=== PATIENT | male | born 1965 | race Two or more races ===

== ENCOUNTER 2025-07-05 13:46 | Inpatient (IN) | payer OTHER ==
[~2025-07-05] VITALS: Ht 165.1 cm; Wt 58.5 kg
--- NOTE | 2025-07-05 14:00 | NUR ---
SHOE CLERK ADMITTING NOTE PATIENT RECEIVED VIA [facility] ACCOMPANIED BY THREE EMT IN STABLE CONDITION. ALERT AND ORIENTED x4, GERMAN SPEAKING. BREATHING IS EVEN AND UNLABORED, 99% AT ROOM AIR. LUNG SOUNDS CLEAR THROUGHOUT. ABDOMEN SOFT AND NON TENDER. CONTINENT OF BLADDER AND BOWEL. AMBULATORY WITHOUT DIFFICULTY. SKIN INTACT, LEFT AC PIV 20G. DENIES PAIN AT TIME OF ADMISSION. COOPERATIVE AND TALKATIVE. FAMILY AT BEDSIDE INCLUDING . SAFETY MEASURES IN PLACE, CARE ONGOING.
[2025-07-05] MEDS ORDERED: METF-440 PO (14:12)
--- NOTE | 2025-07-05 14:12 | NUR ---
MED BLAYNE NOTES MAURYIE Addendum: 07/05/25 at 1414 by IRA JIMENEZ LVN NOTE SAVED PREMATURELY Patient stated that he only takes metformin 500mg twice a day. Ruben rosa) at bedside to translate.
[2025-07-05 16:00] VITALS: BP 109/61; TEMP 97.6; O2SAT 99
[2025-07-05] MEDS ORDERED: MAG HYDROX/AL HYDROX/SIMETH 30 ML UDC PO PRN (17:30)
[2025-07-05] MEDS ORDERED: ZOLPIDEM TARTRATE 5 MG TABLET PO PRN (17:30)
[2025-07-05] MEDS ORDERED: Z GUARD REMEDY 4 OZ OINT TP PRN (17:30)
[2025-07-05] MEDS ORDERED: MAGNESIUM HYDROXIDE 30 ML UDC PO PRN (17:30)
[2025-07-05] MEDS ORDERED: DEXTROSE 50%-WATER 50 ML DISP.SYRIN IV PRN (17:30)
[2025-07-05] MEDS ORDERED: ONDANSETRON HCL/PF 4 MG/2 ML VIAL IVP PRN (17:30)
[2025-07-05] MEDS ORDERED: HYDROCODONE/APAP 10/325MG TABLET PO PRN (17:30)
[2025-07-05] MEDS: IV NS 0.9% 1,000 ML IV PRN (17:38)
[2025-07-05] MEDS: BLOOD SUGAR DIAGNOSTIC 1 EACH STRIP IN SCH (17:51)
--- NOTE | 2025-07-05 18:52 | NUR ---
AIR DEFENSE SPECIALIST CLOSING NOTE PATIENT A+O x4. BREATHING EVEN AND UNLABORED, 98% ON ROOM AIR. SINUS RHYTHM IN 80s. DENIES HAVING PAIN AT THIS TIME. NPO, TOLERATING WELL. IV SITE INTACT, NS @75ML/HR, NO S/S INFILTRATE NOTED. ENDORSED FOR DANIEL.
[2025-07-05 19:02] LABS: CALCIUM, SERUM 8.2 mg/dL (8.5-10.1); CREATININE 0.9 mg/dL (0.6-1.3); SODIUM SERUM 140.0 mmol/L (136-145); UREA NITROGEN, BLOOD 13.0 mg/dL (7-18)
--- NOTE | 2025-07-05 19:45 | NUR ---
REIMBURSEMENT REPRESENTATIVE OPENING NOTES PATIENT COMFORTABLY IN BED, A/O X3, SLOVENIAN SPEAKING. ON ROOM AIR SATURATING 98%, UNLABORED BREATHING NOTED. TELE MONITORING SHOWING SINUS RHYTHM AT 106 BPM. WITH IV ACCESS AT LEFT AC #20G WITH RUNNING NS @75ML/HR INFUSING WELL. NO C/O PAIN/DISCOMFORT. PATIENT IS AMBULATORY, PREFERS TO USE URINAL. ON NPO STATUS AT THIS TIME. ALL FALL/ SAFETY MEASURES IN PLACE PER UNIT PROTOCOL. BED LOCKED AND IN THE LOWEST POSITION. PLAN OF CARE ONGOING.
[2025-07-05] MEDS: PIPERACILLIN /TAZOBACTAM 3.375 G in IV D5W 50 ML IV SCH (19:49)
[2025-07-05 20:00] VITALS: BP 141/75; TEMP 99; O2SAT 99
[2025-07-05] MEDS ORDERED: PIPERACILLIN /TAZOBACTAM 3.375 G in IV D5W 50 ML IV SCH (21:00)
[2025-07-05] MEDS: INSULIN REGULAR, HUMAN 100 UNIT/ML 3 ML VIAL SQ PRN (22:21)
--- NOTE | 2025-07-05 22:21 | NUR ---
RN NOTE BG 160MG/DL, 2 UNITS INSULIN REGULAR REFUSED BY PATIENT. CURRENTLY ON NPO STATUS. WILL CONTINUE TO MONITOR THE PATIENT.
[2025-07-06] VITALS: BP 127/75; TEMP 99.1; O2SAT 99
[2025-07-06 04:00] VITALS: BP 112/70; TEMP 98.6; O2SAT 95
--- NOTE | 2025-07-06 06:49 | NUR ---
LASER ENGRAVER CLOSING NOTES PATIENT REMAINS STABLE, VS WNL. AFEBRILE. TOLERATING ROOM AIR SATURATING 98%, NO SOB NOTED. TELE MONITORING SHOWING SINUS RHYTHM AT 80 BPM. NO C/O PAIN/DISCOMFORT. INTACT IV ACCESS AT LEFT AC #20G WITH RUNNING NS @75ML/HR INFUSING WELL. ON NPO STATUS MAINTAINED PER MD ORDER. ALL DUE MEDS GIVEN PRESCRIBED. CLEANED AND ASSISTED WITH HIS NEEDS. ALL FALL/ SAFETY MEASURES MAINTAINED PER UNIT PROTOCOL. BED LOCKED AND IN THE LOWEST POSITION. WILL ENDORSE TO INCOMING SHIFT RN
[2025-07-06 07:16] LABS: RED BLOOD CELL COUNT(AUTO) 4.20 MIL/uL (4.5-6.0); RED CELL DISTRIBUTION WIDTH 12.7 % (11.5-15.0); WHITE BLOOD COUNT (AUTO) 4.6 K/uL (4.3-11.0)
[2025-07-06 07:35] LABS: PLATELET COUNT (AUTO) 87 K/uL (150-450)
[2025-07-06 07:36] LABS: ASPARTATE AMINOTRANSFERASE 32.0 U/L (15-37); CALCIUM, SERUM 8.0 mg/dL (8.5-10.1); CREATININE 1.0 mg/dL (0.6-1.3); PHOSPHORUS 2.8 mg/dL (2.5-4.9); SODIUM SERUM 142.0 mmol/L (136-145); TOTAL PROTEIN, SERUM 6.3 g/dL (6.4-8.2); UREA NITROGEN, BLOOD 15.0 mg/dL (7-18)
--- NOTE | 2025-07-06 07:52 | NUR ---
RN OPENING NOTE PATIENT RECEIVED IN BED. AWAKE A/O X4. ABLE TO MAKE NEEDS KNOWN. PATIENT ON MONITOR CURRENTLY SINUS RHYTHM 95. PATIENT HAS A LEFT A.C 18#G. ON SALINE FLUSH. PATIENT IS NPO. SAFETY MEASURES IN PLACE, BED ALARM ON, 2X SIDE RAILS UP. BED IN THE LOWEST POSITION POSITION. CALL LIGHT WITHIN REACH.
[2025-07-06] MEDS: PANTOPRAZOLE 40 MG VIAL IV SCH (09:18)
[2025-07-06 10:47] VITALS: BP 129/77; TEMP 98.5; O2SAT 100
[2025-07-06] MEDS: PIPERACILLIN /TAZOBACTAM 3.375 G in IV D5W 100 ML IV SCH (11:12)
[2025-07-06 13:47] LABS: LYMPHOCYTES % (MANUAL) 11 % (16-48); MONOCYTES % (MANUAL) 4 % (0-11.0); NEUTROPHILS % (MANUAL) 85 (42-76); PLATELET ESTIMATE DECREASED
[2025-07-06 14:04] VITALS: BP 129/77; TEMP 98.5; O2SAT 100
--- NOTE | 2025-07-06 17:00 | NUR ---
RN NOTE - BLOOD SUGAR CHECK PATIENT BLOOD GLUCOSE CHECK WAS NOT TAKEN SINCE PATIENT IS ABSENT FROM [facility] AT THE MOMENT BECAUSE THEY ARE GETTING AN ABD SCAN.
[2025-07-06 18:00] VITALS: BP 129/77; TEMP 98.5; O2SAT 100
--- NOTE | 2025-07-06 19:28 | NUR ---
RN CLOSING NOTE PATIENT RECEIVED IN BED. AWAKE A/O X4. ABLE TO MAKE NEEDS KNOWN. PATIENT HAS A LEFT A.C 18#G. ON SALINE FLUSH. PATIENT IS ON CLEAR LIQUIDS. SAFETY MEASURES IN PLACE, BED ALARM ON, 2X SIDE RAILS UP. BED IN THE LOWEST POSITION POSITION. CALL LIGHT WITHIN REACH. Addendum: 07/06/25 at 1929 by DARIN PARKER RN RN CLOSING NOTE PATIENT IN BED. AWAKE A/O X4. ABLE TO MAKE NEEDS KNOWN. PATIENT HAS A LEFT A.C 18#G. ON SALINE FLUSH. PATIENT IS ON CLEAR LIQUIDS. SAFETY MEASURES IN PLACE, BED ALARM ON, 2X SIDE RAILS UP. BED IN THE LOWEST POSITION POSITION. CALL LIGHT WITHIN REACH.
--- NOTE | 2025-07-06 19:50 | NUR ---
APIARIST OPENING NOTES PATIENT ARRIVED AT THE ROOM FROM [facility]AN VIA WHEEL CHAIR, PT WILL BE WHEELED BACK TO [facility] ROOM AFER 1 HR FOR THE PROCEDURE. CURRENTLY ON ROOM AIR SATURATING 98%, UNLABORED BREATHING NOTED. NO C/O PAIN/DISCOMFORT AT THIS TIME. WITH IV ACCESS AT LEFT AC #20G WITH RUNNING NS @75ML/HR INFUSING WELL. PATIENT IS AMBULATORY, PREFERS TO USE URINAL. ON LIQUID DIET AT THIS TIME. ALL FALL/ SAFETY MEASURES IN PLACE PER UNIT PROTOCOL. BED LOCKED AND IN THE LOWEST POSITION. PLAN OF CARE ONGOING.
[2025-07-06 20:00] VITALS: BP 132/68; TEMP 98.1; O2SAT 100
--- NOTE | 2025-07-06 20:00 | NUR ---
RN NOTE - IV ABX PATIENT WAS NOT GIVEN ZOSYN AT SCHEDULED HOUR 1900. PATIENT IS OUT OF DEPARTMENT GETTING A [place] SCAN. NOTIFIED PHARMACY, SAID TO ENDORSE TO NIGHT NURSE WHO CAN GIVE THE DOSE AFTER THE PATIENT RETURNS FROM SCAN.
--- NOTE | 2025-07-06 22:39 | NUR ---
RN NOTE BG 184MG/DL, 3 UNITS INSULIN REGULAR GIVEN PER SLIDING SCALE.
[2025-07-07] VITALS: BP 122/71; TEMP 98; O2SAT 100
[2025-07-07] MEDS: ACETAMINOPHEN 325 MG TABLET PO PRN (03:29)
--- NOTE | 2025-07-07 03:30 | NUR ---
RN NOTE TYLENOL 650MG GIVEN PER PATIENT REQUEST, FOR ABDOMINAL PAIN. WILL CONTINUE TO MONITOR THE PATIENT.
[2025-07-07 04:00] VITALS: BP 130/70; TEMP 98; O2SAT 100
[2025-07-07 06:06] LABS: PLATELET COUNT (AUTO) 92 K/uL (150-450); RED BLOOD CELL COUNT(AUTO) 4.27 MIL/uL (4.5-6.0); RED CELL DISTRIBUTION WIDTH 12.6 % (11.5-15.0); WHITE BLOOD COUNT (AUTO) 5.2 K/uL (4.3-11.0)
[2025-07-07 06:19] LABS: ASPARTATE AMINOTRANSFERASE 29.0 U/L (15-37); CALCIUM, SERUM 8.4 mg/dL (8.5-10.1); CREATININE 0.9 mg/dL (0.6-1.3); SODIUM SERUM 138.0 mmol/L (136-145); TOTAL PROTEIN, SERUM 6.7 g/dL (6.4-8.2); UREA NITROGEN, BLOOD 10.0 mg/dL (7-18)
--- NOTE | 2025-07-07 07:03 | NUR ---
SHANK BURNISHER OPENING NOTES PT AWAKE IN BED, TOLERATING ROOM AIR SATURATING 98%, NO SOB NOTED. TELE MONITORING SHOWING SINUS RHYTHM. NO C/O PAIN/DISCOMFORT. INTACT IV ACCESS AT LEFT AC #20G WITH RUNNING NS @75ML/HR INFUSING WELL. ON CLEAR LIQUID DIET AT THIS MAINTAINED PER MD ORDER. ALL DUE MEDS GIVEN PRESCRIBED. ALL FALL/ SAFETY MEASURES MAINTAINED PER UNIT PROTOCOL. BED LOCKED AND IN THE LOWEST POSITION. WILL CONTINUE WITH POC.
--- NOTE | 2025-07-07 07:38 | NUR ---
DIVING SUPERVISOR CLOSING NOTES PATIENT REMAINS STABLE, VS WNL. AFEBRILE. TOLERATING ROOM AIR SATURATING 98%, NO SOB NOTED. TELE MONITORING SHOWING SINUS RHYTHM AT 80 BPM. NO C/O PAIN/DISCOMFORT. INTACT IV ACCESS AT LEFT AC #20G WITH RUNNING NS @75ML/HR INFUSING WELL. ON CLEAR LIQUID DIET AT THIS MAINTAINED PER MD ORDER. ALL DUE MEDS GIVEN PRESCRIBED. CLEANED AND ASSISTED WITH HIS NEEDS. ALL FALL/ SAFETY MEASURES MAINTAINED PER UNIT PROTOCOL. BED LOCKED AND IN THE LOWEST POSITION. WILL ENDORSE TO INCOMING SHIFT RN
[2025-07-07 08:00] VITALS: BP 115/78; TEMP 98.4; O2SAT 100
[2025-07-07] MEDS: PANTOPRAZOLE 40 MG TABLET.DR PO SCH (08:30)
[2025-07-07] MEDS: POTASSIUM CL. PREMIX PERIPHER. 50 ML IV SCH (10:10)
[2025-07-07 12:00] VITALS: BP 114/72; TEMP 98.2; O2SAT 100
[2025-07-07 12:28] LABS: EOSINOPHILS % (MANUAL) 1 % (0-4); LYMPHOCYTES % (MANUAL) 12 % (16-48); MONOCYTES % (MANUAL) 8 % (0-11.0); NEUTROPHILS % (MANUAL) 79 (42-76)
[2025-07-07 12:29] LABS: PLATELET ESTIMATE DECREASED
[2025-07-07] MEDS ORDERED: MORPHINE SULFATE INJ 4 MG/ML DISP.SYRIN IV PRN (14:00)
[2025-07-07 16:00] VITALS: BP 116/80; TEMP 99.1; O2SAT 100
--- NOTE | 2025-07-07 19:00 | NUR ---
RN PT PAIN IN ABDOMEN 12/20. TYLENOL ADMINISTERED
--- NOTE | 2025-07-07 19:26 | NUR ---
COMPRESSOR STATION OPERATOR CLOSING NOTES PT AWAKE IN BED, TOLERATING ROOM AIR SATURATING 100%, NO SOB NOTED. TELE MONITORING SHOWING SINUS RHYTHM. NO PAIN OR DISCOMFORT. INTACT IV ACCESS AT LEFT AC #20G WITH RUNNING NS @75ML/HR INFUSING WELL. ON CLEAR LIQUID DIET AT THIS TIME, NPO MIDNIGHT FOR MRI. ALL DUE MEDS GIVEN, ALL NEEDS ATTENDED TO. ALL FALL/ SAFETY MEASURES MAINTAINED PER UNIT PROTOCOL. BED LOCKED AND IN THE LOWEST POSITION. ENDORSED TO EPIC WILLOW ANALYST NURSE.
--- NOTE | 2025-07-07 19:30 | NUR ---
SPRINKLER INSPECTOR OPENING NOTES RECEIVED PATIENT IN BED AWAKE. A/OX4, DANISH SPEAKING. ON ROOM AIR, TOLERATING WELL WITH O2 SATURATION OF 98%, NO S/S SOB, DISTRESS, DISCOMFORT NOTED. EXTERNAL TRACK LINER OPERATOR SHOWING SR WITH HR OF 70. IV ACCESS LAC #20G WITH NS RUNNING @75ML/HR INFUSING. SITE PATENT, INTACT, AND FLUSHING WELL. ON CLEAR LIQUID DIET AT THIS TIME, NPO MIDNIGHT 07/08/25 FOR MRI. FALL AND SAFETY MEASURES IN PLACE. BED LOCKED AND IN THE LOWEST POSITION. SIDE RAILS UP X2. WILL CONTINUE POC.
[2025-07-07 19:36] LABS: CALCIUM, SERUM 8.4 mg/dL (8.5-10.1); CREATININE 0.9 mg/dL (0.6-1.3); SODIUM SERUM 137.0 mmol/L (136-145); UREA NITROGEN, BLOOD 8.0 mg/dL (7-18)
[2025-07-07 20:00] VITALS: BP 127/74; TEMP 98.9; O2SAT 98
--- NOTE | 2025-07-07 23:02 | NUR ---
RECEIVED A PHONE CALL DR. PETERS. PT IS GOING HAVE LAPAROSCOPIC POSSIBLE OPEN CHOLECYSTECTOMY TOMORROW. NPO EXCEPT MEDS AFTER MIDNIGHT. START D5 1/2 NS +20 MEQ K+ AT 100CC/HR PAST MIDNIGHT. ON SUNDAY MORNING, KEEP LABEL PRINTING MACHINIST DEVICE AT BEDSIDE. ALSO MRCP W/O CONTRAST HAS TO BE DONE EARLY POSSIBLE.ALL ORDERS NOTED AND CARRIED OUT.
[2025-07-08] VITALS: BP 113/77; TEMP 97.9; O2SAT 98
[2025-07-08] MEDS ORDERED: IV PREMIX D5 1/2NS + KCL 1,000 ML IV ONE (01:05)
[2025-07-08] MEDS: Potassium Chloride 20 MEQ in IV D5/0.45 NACL 1,000 ML IV PRN (01:41)
[2025-07-08 04:00] VITALS: BP 124/71; TEMP 97.8; O2SAT 99
[2025-07-08 06:11] LABS: PLATELET COUNT (AUTO) 107 K/uL (150-450); RED BLOOD CELL COUNT(AUTO) 4.31 MIL/uL (4.5-6.0); RED CELL DISTRIBUTION WIDTH 12.7 % (11.5-15.0); WHITE BLOOD COUNT (AUTO) 4.7 K/uL (4.3-11.0)
[2025-07-08 06:28] LABS: CALCIUM, SERUM 8.6 mg/dL (8.5-10.1); CREATININE 0.7 mg/dL (0.6-1.3); PHOSPHORUS 3.5 mg/dL (2.5-4.9); SODIUM SERUM 139.0 mmol/L (136-145); UREA NITROGEN, BLOOD 9.0 mg/dL (7-18)
[2025-07-08 06:40] LABS: INR 1.04 (0.91-1.10)
--- NOTE | 2025-07-08 07:10 | NUR ---
TOP SPOTTER CLOSING NOTES PATIENT IN BED AWAKE. A/OX4, THAI SPEAKING. ON ROOM AIR, TOLERATING WELL WITH O2 SATURATION OF 98%, NO S/S SOB, DISTRESS, DISCOMFORT NOTED. EXTERNAL OVERHEAD LINE WORKER SHOWING SR WITH HR OF 70. IV ACCESS LAC #20G WITH NS RUNNING @75ML/HR INFUSING. SITE PATENT, INTACT, AND FLUSHING WELL. ON CLEAR LIQUID DIET AT THIS TIME, NPO MIDNIGHT 07/08/25 FOR MRI AND SURGERY. DUE MEDS GIVEN. ALL NEEDS ANTICIPATED AND ATTENDED. FALL AND SAFETY MEASURES IN PLACE. BED LOCKED AND IN THE LOWEST POSITION. SIDE RAILS UP X2. WILL ENDORSE MORNING SHIFT NURSE FOR DANIEL.
--- NOTE | 2025-07-08 07:30 | NUR ---
FISHING VESSEL OPERATOR OPENING NOTE RECEIVED PATIENT AWAKE IN BED. A/O X4, WOLOF SPEAKER. BREATHING EVEN AND NON-LABORED ON ROOM AIR. NO C/O ABDOMINAL PAIN BUT BREATHING IN IS AN AGGRAVATING FACTOR. ON TELE MONITOR READING SINUS RHYTHM AT 82 BPM. HAS THE FOLLOWING IV ACCESS: RIGHT HAND #22G WITH IVPB ZOSYN RUNNING AT 25 ML/HR; LEFT ANTECUBITAL #18G WITH KCL 20MEQ IN D5 1/2NS RUNNING AT 100 ML/HR. NO S/S OF INFILTRATION NOTED. USES THE URINAL. SAFETY PRECAUTIONS IN PLACE: BED LOCKED AND IN LOW POSITION, SIDE RAILS UP X2, CALL LIGHT AND TABLE WITHIN REACH. WILL CONTINUE PLAN OF CARE.
[2025-07-08 08:00] VITALS: BP 123/81; TEMP 98.4; O2SAT 99
[2025-07-08] MEDS: Potassium Chloride 20 MEQ in IV D5/0.45 NACL 1,000 ML IV SCH (08:38)
[2025-07-08 09:44] LABS: ASPARTATE AMINOTRANSFERASE 22.0 U/L (15-37); TOTAL PROTEIN, SERUM 6.5 g/dL (6.4-8.2)
[2025-07-08] MEDS ORDERED: MIDAZOLAM HCL 2 MG/2ML VIAL ONE (10:29)
[2025-07-08] MEDS ORDERED: FENTANYL PF 100MCG/2ML AMPUL ONE (10:29)
[2025-07-08] MEDS ORDERED: SUCCINYLCHOLINE CHLORIDE 20 MG/ML VIAL ONE (10:29)
[2025-07-08] MEDS ORDERED: HYDROMORPHONE 1 MG/1 ML DISP.SYRIN IV PRN (10:30)
--- NOTE | 2025-07-08 10:56 | NUR ---
PATIENT TRANSFERRED TO OR
--- NOTE | 2025-07-08 11:09 | NUR ---
SCHEDULED ZOSYN GIVEN TO OR NURSE FOR ADMINISTRATION
[2025-07-08] MEDS ORDERED: BUPIVACAINE 0.5 % PF 150 MG/30 ML VIAL ONE (11:29)
[2025-07-08] MEDS ORDERED: ANESTHESIA TRAY IN PYXIS 1 EA TRAY MC ONE ×2 (11:29→14:24)
[2025-07-08] MEDS ORDERED: LIDOCAINE 1%-EPI 1:100,000 20 ML VIAL ONE (11:29)
[2025-07-08] MEDS ORDERED: CELLULOSE,OXIDIZED 1 EA PACK MC ONE (12:56)
[2025-07-08 16:00] VITALS: BP 145/81; TEMP 98.2; O2SAT 100
[2025-07-08] MEDS ORDERED: oxyCODONE IR immediate release 5 MG TABLET PO PRN (16:00)
[2025-07-08] MEDS: ACETAMINOPHEN 325 MG TABLET PO SCH (17:01)
[2025-07-08] MEDS: HYDROMORPHONE 1 MG/1 ML DISP.SYRIN IV PRN (17:02)
--- NOTE | 2025-07-08 18:15 | NUR ---
MRCP DONE, PATIENT CURRENTLY WITH NUCLEAR MED FOR HIDA SCAN
--- NOTE | 2025-07-08 18:28 | NUR ---
20MEQ KCL IN D5 1/2NS BAG STILL WITH 800 ML, NON-ADMIN SCHEDULED IV
--- NOTE | 2025-07-08 19:15 | NUR ---
SHOE PULLER CLOSING NOTE PATIENT NOT BACK FROM [facility] SCAN. PATIENT IS ABLE TO MAKE HIS NEEDS KNOWN. SATURATING WELL ON ROOM AIR. PAIN MANAGEMENT PER MD ORDER. AFEBRILE. TELE MONITOR SHOWS SINUS RHYTHM RANGING FROM 70-80 BPM. LEFT ANTECUBITAL PIV INTACT, PATENT AND FLUSHING. NO BM. CLOUDY VIOLETTA URINE OUTPUT NOTED. S/P LAPAROSCOPIC CHOLECYSTECTOMY WITH PERITONEAL ABSCESS WITH DR. PETERS. HAS 4 ABDOMINAL SURGICAL INCISIONS NOTED, DRY AND NO S/S OF INFECTION. HAS RIGHT UPPER QUADRANT GRETCHEN DRAIN WITH SEROSANGUINEOUS FLUID. ALL DUE MEDS GIVEN AND NEEDS ATTENDED. SAFETY MEASURES MAINTAINED. ENDORSED TO NIGHT RN FOR DANIEL.
--- NOTE | 2025-07-08 19:30 | NUR ---
TRACK PATROL OPENING NOTE RECEIVED PATIENT IN BED RETURNING FROM [facility], WITH FAMILY AT BEDSIDE. A/OX4, SAMOAN SPEAKER. PATIENT RETURNED IN STABLE CONDITION WITH VITAL SIGNS TAKEN AND WNL. PATIENT IS ABLE TO MAKE HIS NEEDS KNOWN. ON ROOM AIR, TOLERATING WELL WITH O2 SAT OF 99%. CARDIAC EXTERNAL MONITOR SHOWS SINUS RHYTHMIN THE 60S. LAC #18G AND R-HAND #22G RUNNING POTASSIUM 20MEQ + D5/0.45NS AT 100CCS/HR. SITE PATENT, INTACT, AND FLUSHING WELL. BRP AND CLEAR YELLOW URINE NOTED IN URINAL. RECEIVED S/P LAPAROSCOPIC CHOLECYSTECTOMY WITH PERITONEAL ABSCESS WITH DR. PETERS. HAS 4 ABDOMINAL SURGICAL INCISIONS NOTED. NO SIGNS OF INFECTION NOTED AT SITE. RIGHT UPPER QUADRANT GRETCHEN DRAIN WITH SEROSANGUINEOUS FLUID NOTED BEFORE DRAINAGE. SAFETY MEASURES MAINTAINED. BED IN LOWEST AND LOCKED POSITION. CALL LIGHT WITHIN REACH. SIDE RAILS UP X2. WILL CONTINUE TO MONITOR.
[2025-07-08 20:00] VITALS: BP 154/77; TEMP 97.5; O2SAT 95
--- NOTE | 2025-07-08 20:05 | NUR ---
RN [place] [facility] [phone] [place], ADVISED HIM THAT WE WOULD LIKE TO INITIATE TRANSFER FOR [facility]. HE IS GOING TO FAX 3 PAGES FORM TO BE COMPLETED TO BE SENT BACK TO THEM WITH PATIENT'S FACE SHEET AND MD CONTACT INFO. PROVIDED OUR FAX NUMBER. DR. HARVEY ON THE FLOOR, WITH CONTACT #[phone].
[2025-07-08 22:40] LABS: PLATELET COUNT (AUTO) 132 K/uL (150-450); RED BLOOD CELL COUNT(AUTO) 4.45 MIL/uL (4.5-6.0); RED CELL DISTRIBUTION WIDTH 12.7 % (11.5-15.0); WHITE BLOOD COUNT (AUTO) 8.5 K/uL (4.3-11.0)
[2025-07-08] MEDS: oxyCODONE IR immediate release 5 MG TABLET PO PRN (22:56)
[2025-07-08 23:01] LABS: ASPARTATE AMINOTRANSFERASE 565.0 U/L (15-37); CALCIUM, SERUM 8.7 mg/dL (8.5-10.1); CREATININE 0.9 mg/dL (0.6-1.3); SODIUM SERUM 136.0 mmol/L (136-145); TOTAL PROTEIN, SERUM 6.7 g/dL (6.4-8.2); UREA NITROGEN, BLOOD 12.0 mg/dL (7-18)
--- NOTE | 2025-07-08 23:23 | NUR ---
RN NOTES FOLLOWED UP WITH [facility] [place] ([facility]) [phone] REGARDING THE FAX ON 4 PAGES FOR TRANSFER FOR [facility]. CONFIRMED THAT FAX WENT THROUGH AND THAT THEY WILL CALL WITHIN 24 HOURS REGARDING TRANSFER.
[2025-07-09] VITALS: BP 158/90; TEMP 97.9; O2SAT 100
[2025-07-09 04:00] VITALS: BP 161/91; TEMP 97.9; O2SAT 100
--- NOTE | 2025-07-09 06:50 | NUR ---
COLLETER CLOSING NOTE PATIENT IN BED RESTING WITH BED AT BEDSIDE, STAYING OVERNIGHT. A/OX4, MALTESE SPEAKER, BUT UNDERSTANDS MINIMAL UPPER SORBIAN. ABLE TO MAKE HIS NEEDS KNOWN. ON ROOM AIR, TOLERATING WELL WITH O2 SAT OF 99%. NO S/S OF SOB/DISCOMFORT/DISTRESS. CARDIAC EXTERNAL MONITOR SHOWS SINUS RHYTHMIN THE 6070S. LAC #18G AND R-HAND #22G RUNNING POTASSIUM 20MEQ + D5/0.45NS AT 100CCS/HR. SITE PATENT, INTACT, AND FLUSHING WELL. BRP AND CLEAR YELLOW URINE NOTED IN URINAL; OUTPUT: 1000ML. RECEIVED S/P LAPAROSCOPIC CHOLECYSTECTOMY WITH PERITONEAL ABSCESS WITH DR. PETERS. HAS 4 ABDOMINAL SURGICAL INCISIONS NOTED. NO SIGNS OF INFECTION NOTED AT SITE. RIGHT UPPER QUADRANT GRETCHEN DRAIN WITH SEROSANGUINEOUS FLUID NOTED WITH DRAINAGE 15ML. DUE MEDS GIVEN. ALL NEEDS ANTICIPATED AND ATTENDED. SAFETY MEASURES MAINTAINED. BED IN LOWEST AND LOCKED POSITION. CALL LIGHT WITHIN REACH. SIDE RAILS UP X2. WILL ENDORSE TO MORNING SHIFT NURSE FOR DANIEL.
[2025-07-09 07:42] LABS: PLATELET COUNT (AUTO) 140 K/uL (150-450); RED BLOOD CELL COUNT(AUTO) 4.48 MIL/uL (4.5-6.0); RED CELL DISTRIBUTION WIDTH 12.8 % (11.5-15.0); WHITE BLOOD COUNT (AUTO) 7.6 K/uL (4.3-11.0)
--- NOTE | 2025-07-09 07:45 | NUR ---
RN OPENING NOTE RECEIVED PT RESTING IN BED WITH SON AT BEDSIDE, SEEMS COMFORTABLE, A/OX4, MALTESE SPEAKER, BUT UNDERSTANDS STATELESS. ABLE TO MAKE HIS NEEDS KNOWN. ON ROOM AIR, NO SIGNS OF DISCOMFORT NOTED AT THIS TIME. USES THE URINAL PT HAS 4 ABDOMINAL SURGICAL INCISIONS. NO SIGNS OF INFECTION NOTED AT SITE. RIGHT UPPER QUADRANT GRETCHEN DRAIN WITH SEROSANGUINEOUS FLUID NOTED. ALL FALL AND SAFETY MEASURES MAINTAINED. BED IN LOWEST AND LOCKED POSITION. CALL LIGHT WITHIN REACH. SIDE RAILS UP X3. WILL CONTINUE PLAN OF CARE
[2025-07-09 08:00] VITALS: BP 172/88; TEMP 97.6; O2SAT 98
--- NOTE | 2025-07-09 08:00 | NUR ---
DRAINED 10 ML FROM GRETCHEN DRAIN SANGUINOUS COLOR
[2025-07-09 08:02] LABS: CALCIUM, SERUM 8.9 mg/dL (8.5-10.1); CREATININE 0.8 mg/dL (0.6-1.3); PHOSPHORUS 3.7 mg/dL (2.5-4.9); SODIUM SERUM 134.0 mmol/L (136-145); UREA NITROGEN, BLOOD 12.0 mg/dL (7-18)
[2025-07-09 08:15] LABS: ASPARTATE AMINOTRANSFERASE 687.0 U/L (15-37); TOTAL PROTEIN, SERUM 6.9 g/dL (6.4-8.2)
[2025-07-09 12:00] VITALS: BP 161/90; TEMP 97.8; O2SAT 99
[2025-07-09 16:00] VITALS: BP 160/95; TEMP 98.1; O2SAT 98
[2025-07-09] MEDS ORDERED: IV 1/2NS 1000 ML 1,000 ML IV PRN (16:30)
[2025-07-09] MEDS: IV NS 0.9% 1,000 ML IV SCH (17:22)
--- NOTE | 2025-07-09 17:40 | NUR ---
DRAINED 15ML FROM GRETCHEN DRAIN SANGUINOUS COLOR
--- NOTE | 2025-07-09 18:41 | NUR ---
AMBULANCE COMING FOR PICKUP AT 191. GAVE REPORT TO BRADLEY MISHRA AT [facility].
--- NOTE | 2025-07-09 18:42 | NUR ---
RN OPENING NOTE PT RESTING IN BED WITH SON AT BEDSIDE, SEEMS COMFORTABLE, A/OX4, YAKUT SPEAKER, BUT UNDERSTANDS KITTITIAN. WAITING ON AMBULANCE TO TRANSFER TO [facility]. ABLE TO MAKE HIS NEEDS KNOWN. ON ROOM AIR, NO SIGNS OF DISCOMFORT NOTED AT THIS TIME. USES THE URINAL, RIGHT UPPER QUADRANT GRETCHEN DRAIN WITH SANGUINEOUS FLUID NOTED. PT WAS CLEANED AND REPOSITIONED, ALL NEEDS MET, ALL FALL AND SAFETY MEASURES MAINTAINED. BED IN LOWEST AND LOCKED POSITION. CALL LIGHT WITHIN REACH. SIDE RAILS UP X3. WILL ENDORSE TO MANUFACTURING QUALITY INSPECTOR NURSE FOR DANIEL
--- NOTE | 2025-07-09 19:30 | NUR ---
RN OPENING NOTE RECEIVED ENDORSEMENT FROM DAY SHIFT, PATIENT IS FOR DISCHARGE SCHEDULED TO BE PICKED UP AT 1915 BY [facility] GOING TO [facility] FOR HIGHER LEVEL OF CARE. ALL DISCHARGE PAPER WORKS READY. PATIENT IS READY AT BEDSIDE WITH SONMAXIM. ALL BELONGINGS WITH SON.
[2025-07-09 20:00] VITALS: BP 149/88; TEMP 98.5; O2SAT 98
--- NOTE | 2025-07-09 20:10 | NUR ---
WATCHER AUTOMAT LONG GOODS NOTE REPORT GIVEN TO [facility], DISCHARGE PAPERS AND LATEST EKG GIVEN. EXTERNAL CORDUROY CUTTER OPERATOR TAKEN OFF FROM PATIENT. PATIENT DISCHARGE VIA GURNEY WITH SON AND 2 BUSINESS DEVELOPMENT OFFICER FROM [facility] IN STABLE CONDITION GOING TO [facility].
== END 2025-07-09 22:04 | disposition short-term general hospital (02) | DRG 417 ==
LOC: MEDSG1 13:46 → TELE1 14:03
PROVIDERS: ADMIT Nurse Practitioner Acute Care
PROC: 0FT44ZZ Resection of Gallbladder, Percutaneous Endoscopic Approach (ICD-10-PCS; principal; 2025-07-08 12:00)
DX: K80.43 Calculus of bile duct with acute cholecystitis with obstruction (principal); I21.A1 Myocardial infarction type 2; E11.9 Type 2 diabetes mellitus without complications; Z98.890 Other specified postprocedural states; Z79.84 Long term (current) use of oral hypoglycemic drugs; E80.6 Other disorders of bilirubin metabolism; R74.01 Elevation of levels of liver transaminase levels; K83.8 Other specified diseases of biliary tract
CPT/HCPCS: 36415; 71045-TC; 74181-TC; 76700-TC; 78226; 80048-TC; 80053-TC; 80076-TC; 82247-TC; 82248-TC; 82962-TC; 83735-TC; 84100-TC; 84484-TC; 85025-TC; 85027-TC; 85610-TC; 87081-TC; 88304-TC; 93307-TC; A4223; A9537; G0378; J0330; J0690; J1171; J1815; J2250; J2405; J2470; J2543; J2704; J3010; J3480; J3490; J7030; J7050; J7060